=== PATIENT | female | born 1950 | race Caucasian/White ===

== ENCOUNTER → 2016-09-28 | Outpatient (CLI) | payer OTHER ==
[2016-09-28 12:31] LABS: PROTHROMBIN TIME 12.7 secs (9.7-11.4)
== END ==
LOC: LAB 12:04
PROVIDERS: ATTEND Obstetrics & Gynecology Gynecology
DX: I48.91 Unspecified atrial fibrillation (principal)
CPT/HCPCS: 36415; 85610

== ENCOUNTER → 2016-10-04 | Outpatient (CLI) | payer OTHER | LOC: LAB 11:22 | PROVIDERS: ATTEND Obstetrics & Gynecology Gynecology | DX: I48.91 Unspecified atrial fibrillation (principal) | CPT/HCPCS: 36415; 85610 ==

== ENCOUNTER → 2016-10-20 | Outpatient (CLI) | payer OTHER ==
[2016-10-20 14:41] LABS: PROTHROMBIN TIME 29.8 secs (9.7-11.4)
== END ==
LOC: LAB 11:32
PROVIDERS: ATTEND Obstetrics & Gynecology Gynecology
DX: I48.91 Unspecified atrial fibrillation (principal)
CPT/HCPCS: 36415; 85610

== ENCOUNTER → 2016-10-28 | Outpatient (CLI) | payer OTHER ==
[2016-10-28 11:36] LABS: PROTHROMBIN TIME 21.6 secs (9.7-11.4)
== END ==
LOC: LAB 10:37
PROVIDERS: ATTEND Obstetrics & Gynecology Gynecology
DX: I48.91 Unspecified atrial fibrillation (principal)
CPT/HCPCS: 36415; 85610

== ENCOUNTER → 2016-11-01 | Outpatient (CLI) | payer OTHER ==
[2016-11-01 11:01] LABS: PROTHROMBIN TIME 26.2 secs (9.7-11.4)
== END ==
LOC: LAB 10:37
PROVIDERS: ATTEND Obstetrics & Gynecology Gynecology
DX: I48.91 Unspecified atrial fibrillation (principal)
CPT/HCPCS: 36415; 85610

== ENCOUNTER → 2016-11-10 | Outpatient (CLI) | payer OTHER ==
[2016-11-10 13:21] LABS: PROTHROMBIN TIME 37.8 secs (9.7-11.4)
== END ==
LOC: LAB 12:56
PROVIDERS: ATTEND Obstetrics & Gynecology Gynecology
DX: I48.91 Unspecified atrial fibrillation (principal)
CPT/HCPCS: 36415; 85610

== ENCOUNTER → 2016-11-15 | Outpatient (CLI) | payer OTHER ==
[2016-11-15 10:51] LABS: PROTHROMBIN TIME 39.5 secs (9.7-11.4)
== END ==
LOC: LAB 10:19
PROVIDERS: ATTEND Obstetrics & Gynecology Gynecology
DX: I48.91 Unspecified atrial fibrillation (principal)
CPT/HCPCS: 36415; 85610

== ENCOUNTER → 2016-11-25 | Outpatient (CLI) | payer OTHER ==
[2016-11-25 11:18] LABS: PROTHROMBIN TIME 13.8 secs (9.7-11.4)
== END ==
LOC: LAB 10:54
PROVIDERS: ATTEND Obstetrics & Gynecology Gynecology
DX: I48.91 Unspecified atrial fibrillation (principal)
CPT/HCPCS: 36415; 85610

== ENCOUNTER → 2016-11-29 | Outpatient (CLI) | payer OTHER ==
[2016-11-29 13:46] LABS: PROTHROMBIN TIME 16.8 secs (9.7-11.4)
== END ==
LOC: LAB 13:02
PROVIDERS: ATTEND Obstetrics & Gynecology Gynecology
DX: I48.91 Unspecified atrial fibrillation (principal)
CPT/HCPCS: 36415; 85610

== ENCOUNTER → 2016-12-06 | Outpatient (CLI) | payer OTHER | LOC: LAB 13:31 | PROVIDERS: ATTEND Obstetrics & Gynecology Gynecology | DX: I48.91 Unspecified atrial fibrillation (principal) | CPT/HCPCS: 36415; 85610 ==

== ENCOUNTER → 2016-12-20 | Outpatient (CLI) | payer OTHER | LOC: LAB 10:03 | PROVIDERS: ATTEND Obstetrics & Gynecology Gynecology | DX: I48.91 Unspecified atrial fibrillation (principal) | CPT/HCPCS: 36415; 85610 ==

== ENCOUNTER → 2016-12-25 | Outpatient (CLI) | payer OTHER | LOC: LAB 12:58 | PROVIDERS: ATTEND Obstetrics & Gynecology Gynecology | DX: I48.91 Unspecified atrial fibrillation (principal) | CPT/HCPCS: 36415; 85610 ==

== ENCOUNTER → 2017-01-02 | Outpatient (CLI) | payer OTHER | LOC: LAB 09:00 | PROVIDERS: ATTEND Obstetrics & Gynecology Gynecology | DX: I48.91 Unspecified atrial fibrillation (principal) | CPT/HCPCS: 36415; 85610 ==

== ENCOUNTER → 2017-01-08 | Outpatient (CLI) | payer OTHER | LOC: LAB 10:03 | PROVIDERS: ATTEND Obstetrics & Gynecology Gynecology | DX: I48.91 Unspecified atrial fibrillation (principal) | CPT/HCPCS: 36415; 85610 ==

== ENCOUNTER → 2017-01-15 | Outpatient (CLI) | payer OTHER | LOC: LAB 08:55 | PROVIDERS: ATTEND Obstetrics & Gynecology Gynecology | DX: I48.91 Unspecified atrial fibrillation (principal) | CPT/HCPCS: 36415; 85610 ==

== ENCOUNTER → 2017-03-02 | Outpatient (CLI) | payer OTHER ==
--- NOTE | 2017-03-02 09:52 | EKG ---
[address] [address] Measurements Intervals [place] Rate: 68 P: 87 MT: 154 QRS: 61 QRSD: 88 T: 60 QT: 383 QTc: 399 Interpretive Statements SINUS RHYTHM WITH OCCASIONAL VENTRICULAR PREMATURE COMPLEXES Compared to ECG 06/09/2016 13:02:37 Ventricular premature complex(es) now present Atrial fibrillation no longer present Electronically Signed On 03-05-17 08:02:37 MDT by Armand Glynn MD [email or web address]
== END ==
LOC: RT 09:27
PROVIDERS: ATTEND Obstetrics & Gynecology Gynecology
DX: I48.91 Unspecified atrial fibrillation (principal)
CPT/HCPCS: 93005; 93010

== ENCOUNTER 2018-06-11 05:43 | Observation (INO) ==
[2018-06-11] MEDS ORDERED: Nasal Sanitizer POPSWAB ampule 3 AMP (Nozin) PREOP DOSE ENOS SCH (06:00)
[2018-06-11] MEDS ORDERED: LIDOCAINE W/ SODIUM BICARB 0.5 ML SYR SUBD ONE (06:00)
[2018-06-11] MEDS ORDERED: ceFAZolin Inj 2gm (Premix) 2 GM/50 ML BAG IV ONE ×2 (06:00→06:06)
[2018-06-11] MEDS ORDERED: Lactated Ringers 1,000 ML PRIMARY IV ONE ×2 (06:06→08:36)
[2018-06-11] MEDS ORDERED: LIDOCAINE W/ SODIUM BICARB 0.5 ML SYR ONE (06:40)
[2018-06-11] MEDS: Lactated Ringers 1,000 ML PRIMARY IV SCH ×5 (07:05→22:27)
[2018-06-11] MEDS ORDERED: PROPOFOL 10 MG/1 ML (200 MG/20 ML) VIAL IV ONE (07:14)
[2018-06-11] MEDS ORDERED: LIDOCAINE MPF 2% - 5 ML (20 MG/1 ML) ONE (07:15)
[2018-06-11] MEDS ORDERED: MIDAZOLAM 5 MG/1 ML ONE (07:15)
[2018-06-11] MEDS ORDERED: fentaNYL Inj 250 MCG/5 ML VIAL ONE (07:15)
[2018-06-11] MEDS ORDERED: EPINEPHrine Inj (1:1,000) 30mg/30ml vial ONE (07:17)
[2018-06-11] MEDS ORDERED: Ropivacaine 0.2% VIAL 20 ML ONE ×2 (07:18→07:20)
[2018-06-11] MEDS ORDERED: LIDOCAINE 2%/ EPI 1:200,000 - 20 ML VIAL ONE (07:23)
[2018-06-11] MEDS ORDERED: BUPivacaine Inj 0.5% PF (5mg/ml) 30ml vial ONE (07:23)
[2018-06-11 07:29] LABS: Hematocrit [HCT] 41.8 % (37.0-47.0); Hemoglobin [HGB] 14.1 g/dL (12.0-16.0)
[2018-06-11] MEDS ORDERED: BETAMET ACET/BETAMET NA PH 6 MG/1 ML - 5 ML ONE (09:50)
--- NOTE | 2018-06-11 10:07 | ORTHO.OP ---
- - -: See Dictated Operative Report Procedure Codes - Shoulder Procedures [facility] Procedure Codes: 41966 : [facility] Procedure Codes: Other CPT Code(s) (cpt 01941 and 29541. Elizabeth contreras assisted)
[2018-06-11] MEDS ORDERED: HYDROmorphone 2 MG/1 ML IVP PRN (10:08)
[2018-06-11] MEDS ORDERED: ONDANSETRON 4 MG/2 ML VIAL IVP PRN (10:08)
[2018-06-11] MEDS ORDERED: IPRATROPIUM/ALBUTEROL SULFATE 3 ML NEB NEB ONE (10:21)
--- NOTE | 2018-06-11 10:33 | CRNA.PROCE ---
Nerve Block Documentation - - Type of Nerve Block Used: Left Interscalene Block Position for Nerve Block: Supine Moniters Used During Block: EKG, SPO2, NIBP Oxygen Supplemented: Yes Sedation Used - Enter Amount in Comment Field [ANES.SEDAT]: Midazolam (mg): Yes (3mg), Fentanyl (mcg): Yes (100mcg) Skin Prep Used: ChloroPrep Technique: Nerve Stimulator Nerve Block Needle Used: [email or web address] 50 mm Stimulation Hz: 2 Stimulation Staring mA: 1.4 Stimulation Ending mA: 0.6 Local Anesthetic - Enter Amt in Comment Field [ANES.LOCNB]: 0.5 % Bupivacaine Plain (mL): Yes (20ml), 2 % Xylocaine with Epinephrine 1:200,000 (mL): Yes (20ml ) Additives to Nerve Blocks: Dexamethasone (mg): Yes (8mg(2ml)) - - PreOp Block : Time In: 07:35 PreOp Block : Time Out: 07:50 Anesthesia Time - Other Weight: 87.09 kg Height: 4 ft 10 in Body Mass Index (BMI): 40.1
--- NOTE | 2018-06-11 10:34 | CRNA.PROGR ---
Anesthesia Time - Procedure/Recovery Time Start Date: 06/11/18 End Date: 06/11/18 Anesthesia : Time In: 08:03 Anesthesia : Time Out: 10:29 Anesthesia : Total Time: 146 - Block Time PreOp Block : Time In: 07:35 PreOp Block : Time Out: 07:50 - Total Anesthesia Time Total Anesthesia Time (minutes): 146 - Other Weight: 87.09 kg Height: 4 ft 10 in Body Mass Index (BMI): 40.1 Physical Status: P2 Anesthesia Type: General Anesthesia : LMA
--- NOTE | 2018-06-11 10:34 | CRNA.PROGR ---
Post Anesthesia Phase II - Post Anesthesia Phase II Patient Stable and Discharged To: Phase II Care Assumed By Surgeon: Juan Lopez MD Temperature: 96.8 F Pulse Rate: 51 Respiratory Rate: 14 Blood Pressure: 127/76 Pulse Ox: 92 Total Sriram Score at Discharge: 9 Post Anesthesia Discharge Criteria Met: Yes
[2018-06-11] MEDS ORDERED: HYDROcodone-APAP 7.5 MG-325 MG TABLET PO ONE ×2 (13:59→14:07)
[2018-06-11] MEDS: HYDROcodone-APAP 7.5 MG-325 MG TABLET PO PRN ×3 (14:06→23:41)
--- NOTE | 2018-06-11 15:44 | CONSULT ---
Consult Note - Consult Consult Date: 06/11/18 Reason for Consult: PostOp Consulation : Ortho Primary Care Provider: TAVO NÚÑEZ - History of Present Illness History of Present Illness: This is a 67 years old female with medical history significant for history of paroxysmal A. fib status post ablation done in [place] in February 2017, history of hypertension, obesity, bipolar disorder and history of duodenal ulcer who came into the hospital to have shoulder surgery and was done by Dr. Dr. Lopez. Patient did have an interscalene block. Apparently postoperatively it was noted that she was wheezing and it was difficult to maintain her saturation without oxygen. She required 4 L of oxygen. The patient was admitted for observation overnight. She did receive a breathing treatment downstairs. She feels better now compared to earlier. She said back in December of this year she was suppose to have an upper scope at [facility] when they gave her anesthetic her oxygen saturation dropped and then they canceled the procedure. She did say that they put her on oxygen for about a month and she decided to quit the oxygen on her own. She did have a pulmonary function test according to her but she doesn't know the result. Currently she is denying shortness of breath, denying chest pain and denying nausea. Past Medical History Medical History: 1. History of paroxysmal atrial fibrillation status post ablation. 2. History of hypertension. 3. Obesity. 4. History of bipolar disorder. 5. History of duodenal ulcer Surgical History: 1. Hysterectomy. 2. Appendectomy. 3. History of neck surgery Family History: Reviewed an Not Pertinent Past Social History: She used to smoke, doesn't drink known drugs. Lives in [place]. She said she smoked a pack a day for 20 years she quit probably 20 years ago. Tobacco Use: Former Smoker In the Past 12 Months, Have Used or Abuse Any of the Following Substance: None Alcohol Use: None Review of Systems - Review of Systems All Systems: Reviewed & No Additional Complaints Except as Stated Medication / Allergies Home Medications: Home Medications 3 Medication Instructions Recorded Confirmed Type Fluoxetine HCl [Prozac] 1 cap PO DAILY cap 02/19/15 05/20/18 History Sucralfate 1 gm PO QID tab 02/19/15 05/20/18 History Metoprolol Succinate 1 tab PO HS tab 03/15/15 05/20/18 History Zaleplon 10 mg PO BEDTIME 06/09/17 05/20/18 History apixaban 5 mg tablet 5 mg PO BID 02/28/18 05/20/18 History flecainide 100 mg tablet 100 mg PO Q12H 02/28/18 05/20/18 History ranitidine 150 mg tablet 150 mg PO TID tab 02/28/18 05/20/18 History HYDROcodone/APAP 7.5/325 Tab 1 - 2 tab PO Q4H PRN #50 tab 06/11/18 Rx [[place] 7.5/325 Tab] Allergies/Adverse Reactions: Allergies 3 Allergy/AdvReac Type Severity Reaction Status Date / Time risperidone [From Risperdal] AdvReac Severe closed Verified 06/11/18 06:33 throat Exam - Vitals Vital Signs: Vital Signs Temperature 96.8 F Pulse Rate 80 Respiratory Rate 20 Blood Pressure 127/76 Pulse Ox 94 Oxygen Flow Rate RA Height 4 ft 10 in Weight 192 lb - General General Appearance: No Acute Distress, Cooperative, Obese - Head Head Exam: Normal Inspection - Eye Eye Exam: POSITIVE: Normal Appearance - ENT ENT Exam: POSITIVE: Normal Exam - Respiratory Additional Respiratory Exam Details: Decreased air entry otherwise mostly clear. - Cardiovascular Cardiovascular Exam: POSITIVE: RRR - GI/Abdominal GI/Abdominal Exam: POSITIVE: Normal Bowel Sounds, Non Tender, Non Distended, Soft, No Organomegaly - Rectal Rectal Exam: POSITIVE: Deferred - External Exam: POSITIVE: Deferred - Extremities Additional Extremities Exam Details: Her left arm in a sling - Back Back Exam: POSITIVE: Normal Inspection - Neurological Neurological Exam: POSITIVE: Alert, Oriented x 3, No Facial Droop, Speech Intact / Clear - Psychiatric Psychiatric Exam: POSITIVE: Normal Affect Results - Labs CBC and BMP: 06/11/18 07:21 Assessment and Plan - Patient Problems (1) Status post shoulder surgery Current Visit: Yes Status: Acute Comment: Pain medication was written for her by Dr. Lopez. Code(s): Z98.890 - Other specified postprocedural states (2) Hypoxia Current Visit: Yes Status: Acute Comment: Likely she has an underlying COPD we did obtain a copy of the spirometry that she had in [facility] and that did show obstructive pattern. Her FEV1 was 1.09 which is 62% of the predicted FVC was 2.04 which was 94% of predicted ratio was 53%. which Indicate obstructive pattern. Probably the anesthetic especially the interscalene block played part in her requiring oxygen. Will order a chest x-ray for her and watch her overnight. Will write for bronchodilator treatment. Code(s): R09.02 - Hypoxemia (3) History of atrial fibrillation Current Visit: Yes Status: Acute Comment: Continue her flecainide Code(s): Z86.79 - Personal history of other diseases of the circulatory system (4) Hypertension Current Visit: Yes Status: Acute Comment: Continue metoprolol Code(s): I10 - Essential (primary) hypertension
[2018-06-11] MEDS ORDERED: LEVALBUTEROL HCL 0.63 MG/3 ML NEB PRN (16:41)
--- NOTE | 2018-06-11 20:18 | DI ---
AP CHEST X-RAY, 06/11/2018 3:37 PM : Clinical History: Hypoxia following surgery. Previous Exam: 07/22/2008. The patient has undergone resection of the lateral head of the left clavicle. No other bony abnormali ties are noted. There is cardiomegaly without CHF. The heart has a "globular" configuration typical o f either a cardiomyopathy or a pericardial effusion. The absence of CHF favor a pericardial effusion. There is elevation of the left diaphragm with left lower lobe atelectasis. These changes may be rela eric to regional anesthesia if a scalene block was utilized for the shoulder surgery. Mediastinal stru ctures are normal. There are no pulmonary nodules. Readin. Left lower lobe atelectasis with mild elevation of the left diaphragm. 2. Cardiomegaly without CHF. The heart has a "globular" configuration either representing a pericard ial effusion or a cardiomyopathy. The former is favored because of the absence of CHF.
[2018-06-11] MEDS: FAMOTIDINE 20 MG TABLET PO SCH (20:30)
[2018-06-11] MEDS: FLECAINIDE 100 MG TABLET PO SCH (20:39)
[2018-06-11] MEDS ORDERED: ZALEPLON 10 MG PO SCH (21:00)
[2018-06-11] MEDS ORDERED: METOPROLOL SUCCINATE 25 MG SR 24H TABLET PO SCH (21:00)
[2018-06-12] MEDS: HYDROcodone-APAP 7.5 MG-325 MG TABLET PO PRN ×3 (03:48→11:37)
[2018-06-12 04:11] VITALS: RESP 22
[2018-06-12] MEDS ORDERED: TIOTROPIUM BROMIDE 18 MCG CAPSULE INH SCH (07:00)
[2018-06-12] MEDS: FLECAINIDE 100 MG TABLET PO SCH (08:49)
[2018-06-12] MEDS: FAMOTIDINE 20 MG TABLET PO SCH (08:49)
[2018-06-12] MEDS ORDERED: FLUoxetine 20 MG CAPSULE PO SCH (09:00)
--- NOTE | 2018-06-12 12:26 | DCSUMMARY ---
Hospitalization Summary Admit Date: 06/11/2018 Discharge Date: 06/12/18 Primary Diagnosis:: postoperative hypoxia Secondary Diagnosis:: Status post left shoulder surgery Hospital Course: This is a very pleasant 67-year-old female that had left shoulder surgery done yesterday by Dr. Lopez. See his postoperative note. She developed hypoxia postoperatively and was admitted for observation. She was placed on oxygen, and Spiriva was started. It was determined with review of records that she has underlying COPD. She was also placed on Xopenex. She was placed on oxygen and incentive spirometry. X-ray was consistent with atelectasis. The patient recovered very well, and her oxygen was able to be titrated down to 2 L. She is hypoxic at room air, but on 2 L of oxygen, maintained her oxygen saturations well above 91%. She has no fever, no cough with phlegm production, and is otherwise doing okay. She denies any chest pain, nausea or vomiting, and her shoulder pain is controlled. She is "ready to go home". She did be told to me a history of an ulcer that she had a recent attempt at a follow-up EGD for but it was canceled because of hypoxemia at the time of the procedure. She states they put her on 6 L of oxygen and never did titrate it. She stopped it on her own. She would like a reconsultation with a surgeon here in [place] to discuss her options regarding whether or not a repeat EGD needs to be done. She had a duodenal ulcer diagnosed about 4 years ago and has been on Carafate since that time. For some reason, she is not on an acid vicki at home. She still takes intermittent anti-inflammatories as I understand it. I recommended that she no longer take these. Given her improvements, and her ability to inhale at her goal for incentive spirometry, no complaints of chest pain, nausea or vomiting. Assessment and Plan: 1. As per discharge assessments noted 2. Disposition: patient is discharged home 3. Condition on discharge, stable and improved. 4. Diet: regular diet 5. Activities: as per Dr. Lopez. 6. Follow-Up: 1. Dr. Farrell 2. Dr. Chavez in [address] Lopez. 7. Medications at the Time of Discharge: Home Medications 3 Medication Instructions Recorded Confirmed Type Fluoxetine HCl [Prozac] 1 cap PO DAILY cap 02/19/15 05/20/18 History Metoprolol Succinate 1 tab PO HS tab 03/15/15 05/20/18 History Zaleplon 10 mg PO BEDTIME 06/09/17 05/20/18 History apixaban 5 mg tablet 5 mg PO BID 02/28/18 05/20/18 History flecainide 100 mg tablet 100 mg PO Q12H 02/28/18 05/20/18 History HYDROcodone/APAP 7.5/325 Tab 1 - 2 tab PO Q4H PRN #50 tab 06/11/18 Rx [[place] 7.5/325 Tab] Albuterol 17 gm IH Q4H PRN #1 aer.refill 06/12/18 Rx Pantoprazole Sodium [Protonix] 40 mg PO DAILY #60 tab 06/12/18 Rx Tiotropium Inhalation Cap 18 mcg INH RTDAILY #1 inhaler 06/12/18 Rx [Spiriva Inhalation Cap] 8. Time, care, counseling and coordination of care for this discharge is greater than 30 minutes. Exam - Vitals Vital Signs: Vital Signs Temperature 97.8 F Temperature Source Temporal Artery Scan Pulse Rate [Pulse Oximeter] 67 Pulse Rate 80 Respiratory Rate 22 Blood Pressure [Right Arm] 169/61 Blood Pressure 127/76 Pulse Ox 92 Oxygen Flow Rate 2 Oxygen Delivery Method Nasal Cannula Height 4 ft 10 in Weight 201 lb 9.6 oz - General General Appearance: No Acute Distress, Cooperative - Head Head Exam: Normal Inspection, Normocephalic, Atraumatic - Eye Eye Exam: POSITIVE: No Scleral Icterus - ENT ENT Exam: POSITIVE: Mucous Membranes Moist - Respiratory Respiratory Exam: POSITIVE: Breathing Non Labored, Wheezes (expiratory) - Cardiovascular Cardiovascular Exam: POSITIVE: RRR, No Murmur, No Clicks, No Gallops, No Rubs, No JVD - GI/Abdominal GI/Abdominal Exam: POSITIVE: Normal Bowel Sounds, Non Tender, Non Distended, Soft - Extremities Extremities Exam: POSITIVE: No Clubbing Present, No Edema Present, No Cyanosis Present - Neurological Neurological Exam: POSITIVE: Alert, Oriented x 3, No Facial Droop, Speech Intact / Clear, Moves All Extremities Equally Data Peritnent Studies: 06/11/18 07:21 Hgb 14.1 Hct 41.8 Patient Problems - Patient Problem List (1) Hypoxia Current Visit: Yes Status: Acute Code(s): R09.02 - Hypoxemia Category: Medical (2) COPD (chronic obstructive pulmonary disease) Current Visit: Yes Status: Acute Code(s): J44.9 - Chronic obstructive pulmonary disease, unspecified Qualifiers: COPD type: emphysema Emphysema type: unspecified Qualified Code(s): J43.9 - Emphysema, unspecified Category: Medical (3) Hx of duodenal ulcer Current Visit: Yes Status: Acute Comment: Scope 4 years ago in [place], has been on Carafate since. No follow-up EGD. Has not been on acid vicki. Interestingly, still takes anti-inflammatories, I advised her not to. We will prescribe Protonix for 8 weeks. Have follow-up scheduled with surgery to determine whether rescoping would make any sense. H&H normal. Code(s): Z87.19 - Personal history of other diseases of the digestive system Category: Medical (4) Bipolar disorder Current Visit: Yes Status: Acute Code(s): F31.9 - Bipolar disorder, unspecified Qualifiers: Active/Remission status: remission status unspecified Qualified Code(s): F31.9 - Bipolar disorder, unspecified Category: Medical (5) History of atrial fibrillation Current Visit: Yes Status: Acute Comment: apparently had a history of ablation in the past, but still on eliquis. CHADSVASC2 score, 3 points, 3.2% per year, but with ablation, I wonder if she should not be reanalyzed with the flight control tower operator to determine whether or not this therapy could be de-escalated. Code(s): Z86.79 - Personal history of other diseases of the circulatory system Category: Medical (6) Hypertension Current Visit: Yes Status: Acute Code(s): I10 - Essential (primary) hypertension Qualifiers: Hypertension type: essential hypertension Qualified Code(s): I10 - Essential (primary) hypertension Category: Medical (7) Status post shoulder surgery Current Visit: Yes Status: Acute Code(s): Z98.890 - Other specified postprocedural states Category: Medical (8) Chronic pain syndrome Current Visit: Yes Status: Acute Comment: Generally takes about 90 tablets of hydrocodone a month. Code(s): G89.4 - Chronic pain syndrome Category: Medical (9) Status post insertion of spinal cord stimulator Current Visit: Yes Status: Acute Code(s): Z98.890 - Other specified postprocedural states Category: Surgical
[2018-06-12 13:12] VITALS: BP 177/72; TEMP 97.2; O2SAT 94
--- NOTE | 2018-06-12 19:42 | ORTHO.PROG ---
Last Taken Vital Signs: Vital Signs - Last Taken Temperature 97.2 F 06/12/18 13:00 Pulse Rate 66 06/12/18 13:00 Respiratory Rate 22 06/12/18 13:00 Blood Pressure 177/72 06/12/18 13:00 Pulse Ox 94 06/12/18 13:00 Subjective: Patient notes her shoulder pain is good she is breathing better today after her surgery, patient was admitted because of marked limitations with oxygenation previous history of COPD or reactive airway. Was felt unsafe to send her home also with poorly controlled hypertension Objective: Examination left upper extremity show full range of motion of the elbow wrist and digit normal sensory motor exam dressing is intact with no bleeding or other changes. Vital Signs (24 hrs) Temp Pulse Resp BP Pulse Ox 06/12/18 13:00 97.2 F 66 22 177/72 94 06/12/18 12:19 92 06/12/18 12:15 77 06/12/18 08:44 97.8 F 67 22 169/61 91 06/12/18 04:10 97.9 F 73 22 177/70 92 06/11/18 23:38 98.3 F 77 24 160/52 96 Assessment: Left shoulder subacromial decompression glenohumeral debridement and Stormy procedure with hypoxemia after shoulder procedure with interscalene block. Plan: Patient will follow-up with her primary care provider hospitalist to address issues required hospitalization and other such needs. Patient will follow-up with myself for her shoulder as previously scheduled and will start physical therapy by the end of the week.
[2018-06-12] MEDS ORDERED: ZALEPLON 10 MG PO SCH (21:00)
== END 2018-06-12 13:46 | disposition home or self-care (01) ==
LOC: MED/SURG 05:43 → OR 05:43
PROVIDERS: ADMIT Orthopaedic Surgery; ATTEND Orthopaedic Surgery